=== PATIENT | male | born 1975 | race Caucasian/White ===

== ENCOUNTER 2021-05-27 15:06 | Emergency (ER) | payer OTHER ==
[~2021-05-27] VITALS: Ht 170.2 cm; Wt 113.6 kg
--- NOTE | 2021-05-27 15:38 | PHYS DOC ---
Past History Past Medical History: Anxiety, Heart Disease, Hypertension, NH, Renal Failure (YOLIE CANALES DO) Adult General HPI HPI Patient is a 46-year-old male presenting via EMS for multiple complaints. Patient has complicated past medical history but entire history unclear due to patient being a poor historian. He has history of high blood pressure, prior TIA and stroke, prior heart attack without any advanced interventions sudden such as stents or CABG, and is a peritoneal dialysis patient with typical days being Thursday and Thursday. Reports last date of dialysis was this past Thursday. He admits increased life stressors recently. Reports being more anxi ous than usual and unable to calm down evening prior to arrival prompting him to call EMS for transport to [facility]. Patient reports "I have no idea what they did there, they did not treat me or anything next thing I knew I was home". States today, he was on phone with his dialysis nurse and expressed his concern and frustration about recent events and ER visit. Nurse was concerned about patient's mental state and advised he present to any ER for psychiatric evaluation. EMS was called and on arrival, patient requested [facility]. I attempted to divert patient while en route with EMS due to the fact that we do not have onsite dialysis/nephrology services and that a psychiatric evaluation and likely placement giving current COVID-19 pandemic would be lengthy. Nonetheless, my attempt to divert was over ruled and patient brought to our ER for evaluation. On arrival, patient denies any pain. He is angry at me on arrival stating, " why do not you want to take care of me, why did you divert me". States he is scared and anxious without SI/HI. He reports he was given, "Adderall or something last night, I can even remember I am just freaking out man". Denies any other major changes in health or home medications. (YOLIE CANALES DO) Review of Systems Review of Systems Fourteen body systems of review of systems have been reviewed. See HPI for pertinent positives and negative responses, other becker all other systems are negative, non-pertinent or non-contributory (YOLIE CANALES DO) Physical Exam Physical Exam Constitutional: Age-appropriate but appears disheveled, presents with service dog, highly anxious on arrival HENT: Normocephalic, atraumatic, bilateral external ears normal, oropharynx dry, no oral exudates, nose normal. Eyes: PERRLA, EOMI, conjunctiva normal, no discharge. Neck: Normal range of motion, no tenderness, supple, no stridor. Cardiovascular: Heart rate regular, sinus rhythm, no murmurs rubs or gallops Lungs & Thorax: No obvious respiratory distress, no accessory muscle use, retractions, clear to auscultation bilaterally Abdomen: Bowel sounds normal, soft, no tenderness, no masses, no pulsatile masses. Nonsurgical abdomen, no peritoneal signs patient does have left of midline peritoneal dialysis catheter that was recently placed and well-appearing Skin: Warm, dry, no erythema, no rash. Back: No tenderness, no CVA tenderness. Extremities: No tenderness, no cyanosis, no clubbing, ROM intact, no edema. Neurologic: Alert and oriented X 3, grossly normal motor & sensory function, no focal deficits noted. Psychologic: Anxious affect and mood, pressured speech, poor judgment and memory (YOLIE CANALES DO) Current Patient Data Vital Signs Vital Signs Date Time Temp Pulse Resp B/P (MAP) Pulse Ox O2 Delivery O2 Flow Rate FiO2 05/27/21 15:30 98.0 20 190/103 97 Room Air 05/27/21 16:19 83 05/28/21 00:21 4.0 Vital Signs Date Time Temp Pulse Resp B/P (MAP) Pulse Ox O2 Delivery O2 Flow Rate FiO2 05/28/21 06:11 117 28 98 Room Air 05/28/21 01:39 191/99 (129) 4.0 05/27/21 15:30 98.0 Lab Results Laboratory Tests Test 05/27/21 15:36 05/27/21 15:49 05/27/21 15:52 05/28/21 00:16 White Blood Count 11.0 x10^3/uL Red Blood Count 3.13 x10^6/uL Hemoglobin 9.8 g/dL Hematocrit 29.9 % Mean Corpuscular Volume 95 fL Mean Corpuscular Hemoglobin 31 pg Mean Corpuscular Hemoglobin Concent 33 g/dL Red Cell Distribution Width 16.9 % Platelet Count 323 x10^3/uL Neutrophils (%) (Auto) 76 % Lymphocytes (%) (Auto) 13 % Monocytes (%) (Auto) 10 % Eosinophils (%) (Auto) 2 % Basophils (%) (Auto) 1 % Neutrophils # (Auto) 8.3 x10^3uL Lymphocytes # (Auto) 1.4 x10^3/uL Monocytes # (Auto) 1.1 x10^3/uL Eosinophils # (Auto) 0.2 x10^3/uL Basophils # (Auto) 0.1 x10^3/uL Sodium Level 147 mmol/L Potassium Level 3.9 mmol/L Chloride Level 105 mmol/L Carbon Dioxide Level 25 mmol/L Anion Gap 17 Blood Urea Nitrogen 59 mg/dL Creatinine 10.7 mg/dL Estimated GFR (Cockcroft-Gault) 5.2 BUN/Creatinine Ratio 6 Glucose Level 85 mg/dL Calcium Level 8.3 mg/dL Phosphorus Level 6.0 mg/dL Magnesium Level 2.4 mg/dL Total Bilirubin 0.2 mg/dL Aspartate Amino Transf (AST/SGOT) 15 U/L Alanine Aminotransferase (ALT/SGPT) 16 U/L Alkaline Phosphatase 79 U/L Total Protein 7.0 g/dL Albumin 3.9 g/dL Albumin/Globulin Ratio 1.3 Troponin I Quantitative 0.031 ng/mL Ethyl Alcohol Level < 10 mg/dL Urine Collection Type Unknown Urine Color Yellow Urine Clarity Clear Urine pH 7.0 Urine Specific [place]on 1.025 Urine Protein >100 mg/dl Urine Glucose (UA) 250 mg/dL Urine Ketones (Stick) Neg mg/dL Urine Blood Small Urine Nitrite Neg Urine Bilirubin Neg Urine Urobilinogen Dipstick 0.2 mg/dL Urine Leukocyte Esterase Neg Urine RBC 1-2 /HPF Urine WBC 1-4 /HPF Urine Squamous Epithelial Cells None /LPF Urine Bacteria 0 /HPF Urine Opiates Screen Pos Urine Methadone Screen Neg Urine Barbiturates Neg Urine Phencyclidine Screen Neg Urine Amphetamine/Methamphetamine Neg Urine Benzodiazepines Screen Neg Urine Cocaine Screen Neg Urine Cannabinoids Screen Neg Urine Ethyl Alcohol Neg Glucose (Fingerstick) 133 mg/dL Current Medications Medications (Trade) Dose Ordered Sig/Annmarie Route PRN Reason Start Time Stop Time Status Last Admin Dose Admin Lorazepam (Ativan Inj) 1 mg 1X ONCE IVP 05/27/21 15:45 05/27/21 16:04 DC 05/27/21 15:45 Lorazepam (Ativan Inj) 2 mg 1X ONCE IVP 05/27/21 16:15 05/27/21 16:21 DC 05/27/21 16:15 Fentanyl Citrate (Fentanyl 2ml Vial) 50 mcg 1X ONCE IVP 05/27/21 17:00 05/27/21 17:03 DC 05/27/21 17:00 Lorazepam (Ativan Inj) 2 mg 1X ONCE IVP 05/27/21 19:45 05/27/21 19:51 DC 05/28/21 04:05 Haloperidol Lactate (Haldol) 5 mg 1X ONCE IVP 05/27/21 21:45 05/27/21 21:46 DC 05/27/21 21:45 Haloperidol Lactate (Haldol) 5 mg 1X ONCE IVP 05/27/21 23:45 05/27/21 23:46 DC Lorazepam (Ativan Inj) 2 mg STK-MED ONCE .ROUTE 05/28/21 02:42 05/28/21 02:43 DC Olanzapine (ZyPREXA IM) 10 mg 1X ONCE IM 05/28/21 05:45 05/28/21 05:46 DC 05/28/21 05:45 (YOLIE CANALES DO) EKG EKG EKG initially ordered and interpreted by myself at 1515 hrs. as sinus tachycardia at 104 bpm, unremarkable intervals, no axis deviation, a lot of artifact due to patient moving but no obvious ischemic findings, no STEMI Repeat EKG ordered and interpreted by myself at 1030 hrs. as sinus tachycardia at 104, QTc 461 otherwise unremarkable intervals, no axis deviation, no STEMI (YOLIE CANALES DO) Radiology/Procedures Radiology/Procedures CT Head W/O Contrast: History: Reason: unwitnessed fall with head and neck pain - / Spl. Instructions: pt refused to hold still - best images obtained / History: Comparison: none Axial images were obtained without contrast. There is been prior right temporal craniotomy. There is mild motion artifact. The romeo and white matter appears normal and symmetrical for the patients age. There is no mass effect, extraaxial fluid collections or hydrocephalus. There is no gross bleed. There is no focal loss of romeo-white matter distinction to s uggest acute ischemia, i.e. stroke. Impression: Prior right temporal craniotomy. No acute findings. End impression CT C-Spine without contrast: Clinical History: Reason: unwitnessed fall with head and neck pain - / Spl. Instructions: pt refused to hold still - best images obtained / History: Technique: Axial helical images of the cervical spine were obtained without contrast, axial coronal and sagittal reconstruction was performed. Findings: There is ununited posterior and anterior rings of C1. The C1-C2 relationship is otherwise normal. There is no loss of vertebral body stature. There is no prevertebral soft tissue swelling. The vertebral bodies are well aligned. There is straightening of the normal cervical lordosis which can be positional or could be chronic. The C1-C2 relationship is normal. The visualized osseous structures appear normal. Evaluation of the central canal is limited without contrast. There is multiple posterior disc bulges resulting in flattening of the thecal sac. There does not appear to be gross flattening of the cervical cord. There is moderate narrowing of multiple neuroforamen. Impression: 1. 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 2. No acute fracture or malalignment. ///////////////////////////// EXAM: Chest, single view. HISTORY: Fever. Decreased oxygen saturation. COMPARISON: 05/21/2021 FINDINGS: A frontal view of the chest is obtained. There is diffuse interstitial infiltrate. There is cardiomegaly. There is an endotracheal tube within the distal trachea. There is widening of the superior mediastinum likely due to supine portable technique. There is no convincing pleural effusion or pneumothorax. IMPRESSION: 1. Diffuse interstitial infiltrate and cardiomegaly. 2. Endotracheal tube within the distal trachea. 3. Interval widening of the superior mediastinum, likely due to differences in p atient positioning. Electronically signed by: Mila Linda MD (05/28/2021 10:01 AM) [id number] ////////////////////////////// EXAM: Chest, single view. HISTORY: Catheter placement. COMPARISON: 05/28/2021 FINDINGS: A frontal view of the chest is obtained. There is a right internal jugular catheter with the tip overlying expected location of the superior vena cava. There is a endotracheal tube within the distal trachea. There is stable multifocal interstitial infiltrate. There is stable suspected trace pleural effusions. There is no pneumothorax. There is stable widening of the superior mediastinum and enlargement of the cardiac silhouette. IMPRESSION: 1. Stable multifocal interstitial infiltrate. 2. Right internal jugular catheter with the tip overlying expected location of the superior vena cava. 3. Stable cardiomegaly and widening of the superior mediastinum, the latter which may be accentuated due to supine portable technique. Electronically signed by: Mila Linda MD (05/28/2021 11:48 AM) [id number] (YOLIE CANALES DO) Heart Score C/O Chest Pain: No HEART Score for Chest Pain: HEART Score for Chest Pain Response (Comments) Value History Moderately Suspicious 1 ECG Nonspecific Repolarizatio 1 Age >45 - < 65 1 Risk Factors >3 Risk Factors or Hx CAD 2 Troponin < Normal Limit 0 Total 5 Risk Factors: Risk Factors: DM, Current or recent (<one month) smoker, HTN, HLP, family history of CAD, obesity. Risk Scores: Risk Factors: DM, Current or recent (<one month) smoker, HTN, HLP, family history of CAD, obesity. (YOLIE CANALES DO) C/O Chest Pain: N/A (AIDEN OLMSTEAD DO) Course & Med Decision Making Course & Med Decision Making Airway patent, breathing unlabored, IV and vitals obtained concerning for marked hypertension only History limited due to acute anxiety. Physical examination and initial ER work- up obtained nonconcerning for any emergent and/or surgical issues. With that said, patient's kidney function not great and a known Thursday dialysis patient requiring dialysis today CT head and neck imaging despite no reported trauma negative. 2 mg Ativan administered with improvement in patient's agitation. 50 mcg fentanyl admi nistered with minor improvement in anxiety and agitation due to suspect opioid withdrawal causing symptoms At this time in care, my shift is ending. Comprehensive signout given to oncoming physician. Please defer it Dr. Olmstead's documentation regarding care of patient overnight ////////////////////////////////////////// I assumed care of patient during morning of 05/28/2021. Patient had complicated overnight stay due to worsened anxiety and agitation. He was unable to be accurately assessed by behavioral health providers as a result of his condition. I am unsure if this is uremic encephalopathy versus other I was finally able to contact patient's sister, Laura Mir ([phone]) who is able to provide additional history. Patient has known anxiety, depression and end-stage renal disease caused by uncontrolled hypertension. He is on the following medications at unknown doses: Tizanidine, clonidine, atorvastatin, amlodipine, meclizine, torsemide, carvedilol, buspirone, hydralazine. Patient has been having increased episodes of altered mental status, lightheadedness and occasional syncope. Sister suspects polypharmacy? He rec eives all care in [place] and attends [facility] for dialysis for which she has been on for the past x1 year, sees Dr. Tierney I discussed that patient's mentation worsened since I saw him yesterday. He was AOx4. Today, patient is alert but not oriented to person place or time. GCS 11 (E3,V3,M5). I contacted [facility] hospitalist in disclosed need for urgent t [facility] for [facility], patient accepted under the care of Dr. Hartley. Patient pulled IV out and continued to be agitated and not following commands. As such, decision was made to administer 100 mg IV ketamine for excited delirium. Subsequent labs and IV medication such as hydralazine for hypertension administered Patient initially tolerated IV ketamine but when waking up became agitated again ripping out IV and started stumbling out of room wandering hallways, was a high fall risk. He was relocated back into bed and additional 500 mg IM ketamine administered Due to lack of access, decision was made to put in left tibia IO for access. Patient's ketamine wore off and continued excited delirium from underlying infectious process versus uremic/metabolic encephalopathy ensued. Decision made to intubate patient Patient brought into trauma room. Patient intubated without notable issues. Propofol drip started. Right IJ placed. Patient continued to be restless so further sedation with Precedex started. IV 40 mg Protonix in addition to azithromycin and Rocephin for respiratory pathology administered Sister updated on condition, she came in all questions and concerns were addressed. She is aware of ER visit so far and amenable to plan of care that includes hospital transfer. I updated receiving hospitalist on new condition that patient had been intubated etc. Critical Care Time This patient required critical care. Due to the fact that the patient required a significant amount of one on one physician - patient contact time, ordering and review of studies, arranging urgent treatment with development of a management plan, evaluation of patients response to treatment with frequent reassessments, and discussions with other providers this patient required 75 minutes of critical care time. Critical care time was indicated due to the inherent instability and/or potential for instability in this patient. The critical care time that is allocated to this patient is above and beyond any time spent on any other billable procedures performed on this patient. (YOLIE CANALES DO) Course & Med Decision Making The patient was unable to be screened by [facility] because he refused to speak. We were not sure if this was due to the Ativan that we had to give him, or part of his mental disorder process. He was given 2 separate doses of Ativan 2 mg due to agitation and constantly moving. The patient was later given 5 mg of Haldol IV. He continued to be active and moving almost nonstop all night. He would occasionally yell out for no reason. He was falling asleep lying down or sitting up, but he would not stay asleep. The patient was finally given 10 mg of Zyprexa around 5:30 AM. He will be rescreened by the behavioral health team later this morning. (AIDEN OLMSTEAD DO) Dragon Disclaimer Dragon Disclaimer This electronic medical record was generated, in whole or in part, using a voice recognition dictation system. (YOLIE CANALES DO) Departure Departure: Impression: Primary Impression: AMS (altered mental status) Additional Impressions: ESRD (end stage renal disease) on dialysis Anxiety Anemia in chronic kidney disease, on chronic dialysis HTN (hypertension) Sepsis due to pneumonia Disposition: 02 SHORT [facility] [place] [place] Admitting Physician: Other (dr hartley) (YOLIE CNAALES DO) Condition: GUARDED Problem Qualifiers YOLIE CANALES DO May 27, 2021 15:38 AIDEN OLMSTEAD DO May 28, 2021 05:53
[2021-05-27 16:12] LABS: BASO # 0.1 x10^3/uL (0.0-0.2); BASO % 1 % (0-3); EOS # 0.2 x10^3/uL (0.0-0.7); EOS % 2 % (0-3); HEMATOCRIT 29.9 % (39.0-53.0); HEMOGLOBIN 9.8 g/dL (13.0-17.5); LYMPH # 1.4 x10^3/uL (1.0-4.8); LYMPH % 13 % (24-48); MEAN CORPUSCULAR HEMOGLOBIN 31 pg (25-35); MEAN CORPUSCULAR HGB CONC 33 g/dL (31-37); MEAN CORPUSCULAR VOLUME 95 fL (79-100); MONO # 1.1 x10^3/uL (0.0-1.1); MONO % 10 % (0-9); NEUT # 8.3 x10^3uL (1.8-7.7); NEUT % 76 % (31-73); PLATELET COUNT 323 x10^3/uL (140-400); RED BLOOD COUNT 3.13 x10^6/uL (4.30-5.70); RED CELL DISTRIBUTION WIDTH 16.9 % (11.5-14.5)
[2021-05-27 16:24] LABS: CALCIUM 8.3 mg/dL (8.5-10.1); CREATININE 10.7 mg/dL (0.7-1.3); GFR 5.2; POTASSIUM 3.9 mmol/L (3.5-5.1)
[2021-05-27 16:30] LABS: ALBUMIN 3.9 g/dL (3.4-5.0); ALBUMIN/GLOBULIN RATIO 1.3 (1.0-1.7); MAGNESIUM 2.4 mg/dL (1.8-2.4); TOTAL BILIRUBIN 0.2 mg/dL (0.2-1.0)
--- NOTE | 2021-05-27 16:36 | EKG ---
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
--- NOTE | 2021-05-27 17:47 | RAD ---
CT Head W/O Contrast: History: Reason: unwitnessed fall with head and neck pain - / Spl. Instructions: pt refused to hold s till - best images obtained / History: Comparison: none Axial images were obtained without contrast. There is been prior right temporal craniotomy. There is mild motion artifact. The romeo and white matter appears normal and symmetrical for the patients age. There is no mass effe ct, extraaxial fluid collections or hydrocephalus. There is no gross bleed. There is no focal loss of romeo-white matter distinction to suggest acute ischemia, i.e. stroke. Impression: Prior right temporal craniotomy. No acute findings. End impression CT C-Spine without contrast: Clinical History: Reason: unwitnessed fall with head and neck pain - / Spl. Instructions: pt refused to hold still - best images obtained / History: Technique: Axial helical images of the cervical spine were obtained without contrast, axial coronal and sagittal reconstruction was performed. Findings: There is ununited posterior and anterior rings of C1. The C1-C2 relationship is otherwise normal. There is no loss of vertebral body stature. There is no prevertebral soft tissue swelling. The vert ebral bodies are well aligned. There is straightening of the normal cervical lordosis which can be p ositional or could be chronic. The C1-C2 relationship is normal. The visualized osseous structures ap pear normal. Evaluation of the central canal is limited without contrast. There is multiple posterio r disc bulges resulting in flattening of the thecal sac. There does not appear to be gross flattening of the cervical cord. There is moderate narrowing of multiple neuroforamen. Impression: 1. 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 2. No acute fracture or malalignment. 3. Degenerative changes with multilevel central and neuroforaminal stenosis. Clinical correlation sug gested. PQRS Compliance Statement: One or more of the following individualized dose reduction techniques were utilized for this examinat ion: 1. Automated exposure control 2. Adjustment of the mA and/or kV according to patient size 3. Use of iterative reconstruction technique Electronically signed by: Anam Woods III, MD (05/27/2021 5:45 PM) [facility]
[2021-05-27 18:47] LABS: BARBITURATES NEG (NEG); BENZODIAZEPINES NEG (NEG); CANNABINOIDS NEG (NEG); COCAINE NEG (NEG); METHADONE NEG (NEG); OPIATES POS (NEG); PHENCYCLIDINE NEG (NEG)
[2021-05-27 18:54] LABS: AMPHETAMINE/METHAMPHETAMINE NEG (NEG)
[2021-05-27 19:40] LABS: BACTERIA,URINE 0 /HPF (0-FEW); BILIRUBIN,URINE NEG (NEG); CLARITY,URINE CLEAR; COLOR,URINE YELLOW; GLUCOSE,URINE 250 mg/dL (NEG); NITRITE,URINE NEG (NEG); UROBILINOGEN,URINE 0.2 mg/dL (0.2 mg/dL)
[2021-05-27] MEDS ORDERED: HALOPERIDOL LACT 5 MG/ML VIAL. IVP ONE ×2 (21:45→23:45)
[2021-05-28] MEDS ORDERED: OLANZapine IM 10 MG VIAL. IM ONE (05:45)
[2021-05-28] MEDS ORDERED: KETAMINE HCL IN NACL, ISO-OSM 50 MG/5 ML SYRINGE ONE (07:38)
[2021-05-28] MEDS ORDERED: hydrALAZINE 20 MG/ML VIAL. IV ONE (08:00)
[2021-05-28] MEDS ORDERED: ROCURONIUM 50 MG/5 ML VIAL. ONE (08:00)
[2021-05-28 08:02] LABS: BASO # 0.1 x10^3/uL (0.0-0.2); BASO % 1 % (0-3); EOS # 0.1 x10^3/uL (0.0-0.7); EOS % 1 % (0-3); HEMATOCRIT 31.2 % (39.0-53.0); HEMOGLOBIN 10.1 g/dL (13.0-17.5); LYMPH # 0.8 x10^3/uL (1.0-4.8); LYMPH % 6 % (24-48); MEAN CORPUSCULAR HEMOGLOBIN 31 pg (25-35); MEAN CORPUSCULAR HGB CONC 32 g/dL (31-37); MEAN CORPUSCULAR VOLUME 96 fL (79-100); MONO % 8 % (0-9); NEUT # 10.4 x10^3uL (1.8-7.7); NEUT % 84 % (31-73); PLATELET COUNT 334 x10^3/uL (140-400); RED BLOOD COUNT 3.25 x10^6/uL (4.30-5.70); RED CELL DISTRIBUTION WIDTH 16.4 % (11.5-14.5); WHITE BLOOD COUNT 12.4 x10^3/uL (4.0-11.0)
[2021-05-28 08:08] LABS: CALCIUM 8.2 mg/dL (8.5-10.1); CREATININE 12.3 mg/dL (0.7-1.3); GFR 4.4; POTASSIUM 3.9 mmol/L (3.5-5.1)
[2021-05-28] MEDS ORDERED: KETAMINE HCL 500 MG/10 ML VIAL. ONE (08:15)
[2021-05-28 08:19] LABS: MAGNESIUM 2.3 mg/dL (1.8-2.4)
[2021-05-28] MEDS ORDERED: LIDOCAINE 2% 20 ML VIAL. ONE (08:24)
[2021-05-28 08:27] LABS: PHOSPHORUS 9.2 mg/dL (2.6-4.7)
[2021-05-28] MEDS ORDERED: KETAMINE HCL 500 MG/10 ML VIAL. IM ONE ×2 (08:30→09:00)
[2021-05-28] MEDS ORDERED: ATROPINE 0.5 MG/5 ML DISP.SYRIN. IV PRN (08:30)
[2021-05-28] MEDS ORDERED: IV NORMAL SALINE 500ML 500 ML IV PRN (08:30)
[2021-05-28] MEDS ORDERED: ETOMIDATE 40 MG/20 ML VIAL. ONE (09:29)
[2021-05-28] MEDS ORDERED: ACETAMINOPHEN 650 MG SUPP.RECT. PR ONE (09:30)
[2021-05-28] MEDS ORDERED: PROPOFOL 100 ML IV ONE (09:47)
[2021-05-28] MEDS ORDERED: CALCIUM GLUCONATE 1,000 MG/10 ML VIAL ONE (10:02)
[2021-05-28] MEDS ORDERED: SODIUM BICARB ADULT 8.4% 50 MEQ/50 ML DISP.SYRIN. ONE (10:02)
--- NOTE | 2021-05-28 10:03 | RAD ---
EXAM: Chest, single view. HISTORY: Fever. Decreased oxygen saturation. COMPARISON: 05/21/2021 FINDINGS: A frontal view of the chest is obtained. There is diffuse interstitial infiltrate. There is cardiomegaly. There is an endotracheal tube within the distal trachea. There is widening of the supe rior mediastinum likely due to supine portable technique. There is no convincing pleural effusion or pneumothorax. IMPRESSION: 1. Diffuse interstitial infiltrate and cardiomegaly. 2. Endotracheal tube within the distal trachea. 3. Interval widening of the superior mediastinum, likely due to differences in patient positioning. Electronically signed by: Mila Linda MD (05/28/2021 10:01 AM) [id number]
[2021-05-28 10:41] LABS: BGAS PH 7.3 (7.35-7.46)
[2021-05-28] MEDS ORDERED: PANTOPRAZOLE IV 40 MG VIAL. IVP ONE (11:00)
[2021-05-28 11:05] LABS: CALCIUM 8.2 mg/dL (8.5-10.1); CREATININE 12.6 mg/dL (0.7-1.3); GFR 4.3; POTASSIUM 3.9 mmol/L (3.5-5.1)
[2021-05-28 11:20] LABS: ALBUMIN 3.9 g/dL (3.4-5.0); ALBUMIN/GLOBULIN RATIO 1.1 (1.0-1.7); MAGNESIUM 2.5 mg/dL (1.8-2.4); TOTAL BILIRUBIN 0.4 mg/dL (0.2-1.0); TOTAL PROTEIN 7.6 g/dL (6.4-8.2)
[2021-05-28 11:21] LABS: PHOSPHORUS 10.2 mg/dL (2.6-4.7)
[2021-05-28] MEDS ORDERED: MIDAZOLAM 50mg/50ml NS KIT 50 ML IV ONE (11:22)
[2021-05-28] MEDS ORDERED: AZITHROMYCIN 500 MG in IV NORMAL SALINE 250ML 250 ML IV ONE (11:30)
[2021-05-28] MEDS: DEXMEDETOMIDINE 400 MCG in IV NORMAL SALINE 100ML 96 ML IV PRN ×4 (11:46→12:33)
[2021-05-28] MEDS ORDERED: AZITHROMYCIN 500 MG VIAL. IV ONE (11:48)
[2021-05-28] MEDS ORDERED: IV NORMAL SALINE 100ML 100 ML ONE ×2 (11:48→11:55)
[2021-05-28] MEDS ORDERED: IV NORMAL SALINE 250ML 250 ML ONE (11:48)
--- NOTE | 2021-05-28 11:51 | RAD ---
EXAM: Chest, single view. HISTORY: Catheter placement. COMPARISON: 05/28/2021 FINDINGS: A frontal view of the chest is obtained. There is a right internal jugular catheter with th e tip overlying expected location of the superior vena cava. There is a endotracheal tube within the distal trachea. There is stable multifocal interstitial infiltrate. There is stable suspected trace p leural effusions. There is no pneumothorax. There is stable widening of the superior mediastinum and enlargement of the cardiac silhouette. IMPRESSION: 1. Stable multifocal interstitial infiltrate. 2. Right internal jugular catheter with the tip overlying expected location of the superior vena cava . 3. Stable cardiomegaly and widening of the superior mediastinum, the latter which may be accentuated due to supine portable technique. Electronically signed by: Mila Linda MD (05/28/2021 11:48 AM) [id number]
--- NOTE | 2021-05-28 12:11 | EKG ---
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
[2021-05-28 13:15] VITALS: BP 169/99
[2021-05-28] MEDS ORDERED: PROPOFOL 100 ML IV PRN (13:15)
== END 2021-05-28 15:16 | disposition short-term general hospital (02) ==
LOC: ER 15:06
DX: A41.9 Sepsis, unspecified organism (principal); I13.2 Hypertensive heart and chronic kidney disease with heart failure and with stage 5 chronic kidney disease, or end stage renal disease; N18.6 End stage renal disease; I50.9 Heart failure, unspecified; R41.82 Altered mental status, unspecified; F41.9 Anxiety disorder, unspecified; D63.1 Anemia in chronic kidney disease; N18.9 Chronic kidney disease, unspecified; Z20.822 Contact with and (suspected) exposure to COVID-19
CPT/HCPCS: 36415; 70450; 71045; 72125; 80048; 80053; 80307; 81001; 82803; 82947; 83605; 83735; 84100; 84484; 85025; 86592; 86703; 86705; 86709; 86803; 87040; 87340; 87426; 93005; 96365; 96368; 96372; 96375; 96376; 99291; 99292; C9113; G0480; J0360; J0456; J0696; J1630; J2060; J3010; J3490; J7050; U0003; 94002